=== PATIENT | male | born 1935 | race Caucasian/White ===

== ENCOUNTER 2019-08-25 01:49 | Inpatient (IN) | payer BC, MEDICARE ==
[2019-08-25] MEDS ORDERED: SODIUM CHLORIDE 0.9% 1,000 ML IV STA (02:03)
[2019-08-25] MEDS ORDERED: RX INFO: IV CONTRAST WAS GIVEN 1 EACH MISC MISCELLANE PRN (02:03)
[2019-08-25 02:13] LABS: Basophils # (A) 0.1 k/uL (0-0.2); Basophils % (A) 0 %; Eosinophils # (A) 0.1 k/uL (0-0.7); Eosinophils % (A) 1 %; HCT 39.5 % (39.0-53.0); HGB 13.3 gm/dL (13.0-17.5); Lymphocytes # (A) 0.7 k/uL (1.0-4.8); Lymphocytes % (A) 5 %; MCHC 33.8 g/dL (31.0-37.0); MCV 94.8 fL (80.0-100.0); Mean Platelet Volume 6.4; Monocytes # (A) 0.8 k/uL (0-1.0); Monocytes % (A) 6 %; Neutrophils # (A) 11.8 k/uL (1.3-7.7); Neutrophils % (A) 87 %; Platelet Count 257 k/uL (150-450); RBC 4.17 m/uL (4.30-5.90); RDW 12.7 % (11.5-15.5); WBC 13.6 k/uL (3.8-10.6)
[2019-08-25 02:19] LABS: Partial Thromboplastin Time 23.7 sec (22.0-30.0); Prothrombin Time 10.3 sec (9.0-12.0)
[2019-08-25 02:20] LABS: Albumin 3.8 g/dL (3.5-5.0); Potassium 3.9 mmol/L (3.5-5.1); Total Bilirubin 0.9 mg/dL (0.2-1.3)
--- NOTE | 2019-08-25 02:30 | ED ---
SOB HPI - General Chief Complaint: Shortness of Breath Stated Complaint: WENCESLAO Time Seen by Provider: 08/25/19 02:03 Source: patient, EMS Mode of arrival: EMS Limitations: no limitations - History of Present Illness Initial Comments: Boby is a pleasant 84-year-old gentleman who presents the emergency department today via EMS for evaluation of productive cough and hemoptysis. Patient reports she's had a cough for a few days duration, he's feeling somewhat short of breath and having pleuritic chest pain more prominent on the right. Pain is worse with cough or deep inspiration. Patient reports that this evening he developed some bright red blood in his sputum which became concerning and prompted him to call EMS or transferred to hospital. Patient is not on any anticoagulant or antiplatelet medications. Has no history of hemoptysis in the past. - Related Data Allergies Allergy/AdvReac Type Severity Reaction Status Date / Time No Known Allergies Allergy Verified 08/25/19 01:54 Review of Systems ROS Statement: Those systems with pertinent positive or pertinent negative responses have been documented in the HPI. ROS Other: All systems not noted in ROS Statement are negative. Past Medical History Past Medical History: Cancer, Chest Pain / Angina, Hypertension, Prostate Disorder Additional Past Medical History / Comment(s): irregular heart beat, patient s tated no high blood pressure but used to be on atenolol and norvasc. Patient no longer taking those medications, no longer taking plavix either. History of Any Multi-Drug Resistant Organisms: None Reported Past Surgical History: Heart Catheterization With Stent, Hernia Repair, Tonsillectomy Additional Past Surgical History / Comment(s): cadriac stents x 2, removed right testicle Past Anesthesia/Blood Transfusion Reactions: No Reported Reaction Date of Last Stent Placement:: 01/13/2014 Past Psychological History: No Psychological Hx Reported Smoking Status: Former smoker Past Alcohol Use History: None Reported Past Drug Use History: None Reported - Past Family History Father Family Medical History: Diabetes Mellitus, Dialysis, Hypertension, Renal Disease General Exam - General Exam Comments Initial Comments: Physical Exam GENERAL: Patient is well-developed and well-nourished. Ill appearing HENT: Normocephalic, Atraumatic. EYES: PERRL, EOMI PULMONARY: Tachypnea, shallow respirations, crackles on the right CARDIOVASCULAR: RRR Warm and well perfused extremities ABDOMEN: Soft and nontender with normal bowel sounds. Soft, reducible umbilical hernia SKIN: Skin is clear with no lesions or rashes and otherwise unremarkable. : Deferred NEUROLOGIC: Patient is alert and oriented x3. Moving all extremities spontaneously MUSCULOSKELETAL: Normal extremities with adequate strength and full range of motion. No lower extremity swelling or edema. No calf tenderness. PSYCHIATRIC: Normal psychiatric evaluation. Limitations: no limitations Course Vital Signs 08/25/19 08/25/19 08/25/19 01:50 02:30 03:30 Temperature 98.5 F Pulse Rate 93 80 90 Respiratory 18 18 18 Rate Blood Pressure 149/92 136/79 143/80 O2 Sat by Pulse 95 96 96 Oximetry 08/25/19 04:32 Temperature 99.5 F Pulse Rate 80 Respiratory 20 Rate Blood Pressure 139/83 O2 Sat by Pulse 97 Oximetry Medical Decision Making - Medical Decision Making Patient was seen and evaluated, history is obtained from the patient, patient appears to have a productive cough with hemoptysis concerning for likely orchitis or pneumonia. His exams concerning for pneumonia. Labs and imaging were obtained Lab studies reveal mild leukocytosis, normal hemoglobin, normal coags, acute kidney injury Computed tomography scan with contrast was ordered to evaluate for pneumonia versus mass is cause for hemoptysis, computed tomography scan resulted with bilateral infiltrate more prominent on the right with the left however it was also noted to have small peripheral pulmonary embolism bilaterally. Given the patient is having hemoptysis or suspicion that he could have a pulmonary infarct. Antibiotics were ordered remainder of the septic workup was initiated Lactic acid was negative, blood Cultures were obtained prior to menstruation of antibiotics Patient care was discussed with Dr. Cross of the [facility] who agrees with plan for admission. Recommends heparinizing patient with no bolus. - Lab Data Result diagrams: 08/25/19 02:00 08/25/19 02:00 Lab Results 08/25/19 08/25/19 08/25/19 Range/Units 02:00 02:00 02:00 WBC 13.6 H (3.8-10.6) k/uL RBC 4.17 L (4.30-5.90) m/uL Hgb 13.3 (13.0-17.5) gm/dL Hct 39.5 (39.0-53.0) % MCV 94.8 (80.0-100.0) fL MCH 32.0 (25.0-35.0) pg MCHC 33.8 (31.0-37.0) g/dL RDW 12.7 (11.5-15.5) % Plt Count 257 (150-450) k/uL Neutrophils % 87 % Lymphocytes % 5 % Monocytes % 6 % Eosinophils % 1 % Basophils % 0 % Neutrophils # 11.8 H (1.3-7.7) k/uL Lymphocytes # 0.7 L (1.0-4.8) k/uL Monocytes # 0.8 (0-1.0) k/uL Eosinophils # 0.1 (0-0.7) k/uL Basophils # 0.1 (0-0.2) k/uL PT (9.0-12.0) sec INR (<1.2) APTT (22.0-30.0) sec Sodium 138 (137-145) mmol/L Potassium 3.9 (3.5-5.1) mmol/L Chloride 109 H (98-107) mmol/L Carbon Dioxide 19 L (22-30) mmol/L Anion Gap 10 mmol/L BUN 23 H (9-20) mg/dL Creatinine 1.37 H (0.66-1.25) mg/dL Est GFR (CKD-EPI)AfAm 54 (>60 ml/min/1.73 sqM) Est GFR (CKD-EPI)NonAf 47 (>60 ml/min/1.73 sqM) Glucose 125 H (74-99) mg/dL Plasma Lactic Acid Jose (0.7-2.0) mmol/L Calcium 10.0 (8.4-10.2) mg/dL Total Bilirubin 0.9 (0.2-1.3) mg/dL AST 22 (17-59) U/L ALT 15 L (21-72) U/L Alkaline Phosphatase 55 (38-126) U/L Troponin I (0.000-0.034) ng/mL NT-Pro-B Natriuret Pep 321 pg/mL Total Protein 7.0 (6.3-8.2) g/dL Albumin 3.8 (3.5-5.0) g/dL 08/25/19 08/25/19 08/25/19 Range/Units 02:00 02:00 03:17 WBC (3.8-10.6) k/uL RBC (4.30-5.90) m/uL Hgb (13.0-17.5) gm/dL Hct (39.0-53.0) % MCV (80.0-100.0) fL MCH (25.0-35.0) pg MCHC (31.0-37.0) g/dL RDW (11.5-15.5) % Plt Count (150-450) k/uL Neutrophils % % Lymphocytes % % Monocytes % % Eosinophils % % Basophils % % Neutrophils # (1.3-7.7) k/uL Lymphocytes # (1.0-4.8) k/uL Monocytes # (0-1.0) k/uL Eosinophils # (0-0.7) k/uL Basophils # (0-0.2) k/uL PT 10.3 (9.0-12.0) sec INR 1.0 (<1.2) APTT 23.7 (22.0-30.0) sec Sodium (137-145) mmol/L Potassium (3.5-5.1) mmol/L Chloride (98-107) mmol/L Carbon Dioxide (22-30) mmol/L Anion Gap mmol/L BUN (9-20) mg/dL Creatinine (0.66-1.25) mg/dL Est GFR (CKD-EPI)AfAm (>60 ml/min/1.73 sqM) Est GFR (CKD-EPI)NonAf (>60 ml/min/1.73 sqM) Glucose (74-99) mg/dL Plasma Lactic Acid Jose 0.8 (0.7-2.0) mmol/L Calcium (8.4-10.2) mg/dL Total Bilirubin (0.2-1.3) mg/dL AST (17-59) U/L ALT (21-72) U/L Alkaline Phosphatase (38-126) U/L Troponin I <0.012 (0.000-0.034) ng/mL NT-Pro-B Natriuret Pep pg/mL Total Protein (6.3-8.2) g/dL Albumin (3.5-5.0) g/dL - EKG Data -: EKG Interpreted by Wy EKG shows normal: sinus rhythm EKG Comments: EKG was obtained due to pleuritic chest pain, EKG obtained at 2 AM, rate is 81 rhythm is sinus, there is a normal axis, there are normal intervals, LA 184, QRS 90, QTc is 441 there are no acute ST elevations or depressions no evidence of acute ischemia or infarction. Of note there is a lead 1 and a inverted T-wave in lead 3 these are concerning for right heart strain. Disposition Clinical Impression: Pulmonary embolism, CAP (community acquired pneumonia), Hemoptysis, JULIANNA (acute kidney injury) Disposition: ADMITTED IP TO THIS HOSP Condition: Serious
--- NOTE | 2019-08-25 02:55 | CT ---
EXAMINATION TYPE: CT chest w con DATE OF EXAM: 08/25/2019 COMPARISON: None HISTORY: Patient presents with hemoptysis. CT DLP: 425.4 mGycm Automated exposure control for dose reduction was used. CONTRAST: CT scan of the chest is performed with IV Contrast, patient injected with 100mL mL of Isovue 300. FINDINGS: There is some coarse infiltrate and atelectasis at the lung bases bilaterally. Heart appears enlarged . There is no mediastinal adenopathy. Thoracic aorta is atheromatous. There are no hilar masses. Ther e is no aneurysm or dissection. There are calcified granulomata at the pulmonary alphonso. The ascending aorta measures 3.3 cm. There are multiple hepatic cysts. There is fluid level in the gallbladder that could relate to multiple gallstones. There is some spurring in the thoracic spine. I see no bony solo tructive process. IMPRESSION: Mild spondylotic changes. Cardiomegaly. Bilateral lower lobe pulmonary infiltrates and atelectasis. Old granulomatous disease.
[2019-08-25] MEDS ORDERED: AZITHROMYCIN 500 MG in SODIUM CHLORIDE 0.9% 250 ML IVPB STA (03:02)
[2019-08-25] MEDS ORDERED: MORPHINE SULFATE 4 MG/ML SYRINGE IVP STA (03:12)
[2019-08-25] MEDS ORDERED: HEPARIN SODIUM,PORCINE 5,000 UNIT/ML 1 ML VIAL IV PRN (04:10)
[2019-08-25] MEDS ORDERED: NALOXONE 0.4 MG/ML 1 ML VIAL IV PRN (04:14)
[2019-08-25] MEDS ORDERED: HEPARIN SOD,PORK IN 0.45% NACL 25,000 UNIT in 0.45% NACL 1 250ML.BAG IV SCH (04:15)
--- NOTE | 2019-08-25 06:51 | P.HPIM ---
History of Present Illness H&P Date: 08/25/19 Chief Complaint: Hemoptysis 84-year-old male with a remote history of colon cancer Patient comes in today by EMS due to hemoptysis. Patient reports that he's been feeling sick over the past 3 days, described productive cough and some pleuritic chest pain with subjective fevers and chills. He reports that the pain gets worse with deep breathing and coughing and it happens at different sites of his chest is time. Rated it as sharp pain 6 out of 10 in severity. Short left pain resolves immediately. He reports positive sick contact about a week ago when his niece visited him and she had walking pneumonia. He denies any recent hospitalization or any recent use of antibiotics. However today he started having hemoptysis got very concerned he felt his breathing was getting worse. He lives alone he takes care of himself and his son checks on him by calling him daily. Patient called EMS and was brought into the hospital Patient otherwise denies any GI bleeding denies any nausea vomiting denies any abdominal pain denies any focal neuro deficits denies any headache changes in vision or hearing. Patient reported remote history of colon cancer found on colonoscopy but upon follow-up with colonoscopies he was told by his doctors that everything was cleared. Patient doesn't take any medications at home at this time. Patient denies any suicidal ideation patient denies any depression. Patient denies any falling In the ED patient labs showed elevated white count and creatinine. CT of the chest showed pulmonary infiltrates and multiple emboli, EKG showed some T-wave inversion in lead III Review of Systems Pertinent positives as noted in HPI. All other systems were reviewed and are negative Past Medical History Past Medical History: Cancer, Chest Pain / Angina, Hypertension, Prostate Disorder Additional Past Medical History / Comment(s): irregular heart beat, patient stated no high blood pressure but used to be on atenolol and norvasc. Patient no longer taking those medications, no longer taking plavix either. History of Any Multi-Drug Resistant Organisms: None Reported Past Surgical History: Heart Catheterization With Stent, Hernia Repair, Tonsillectomy Additional Past Surgical History / Comment(s): cadriac stents x 2, removed right testicle Past Anesthesia/Blood Transfusion Reactions: No Reported Reaction Date of Last Stent Placement:: 01/13/2014 Past Psychological History: No Psychological Hx Reported Smoking Status: Former smoker Past Alcohol Use History: None Reported Past Drug Use History: None Reported - Past Family History Mother Family Medical History: Cancer Father Family Medical History: Diabetes Mellitus, Dialysis, Hypertension, Renal Disease Medications and Allergies Allergies Allergy/AdvReac Type Severity Reaction Status Date / Time No Known Allergies Allergy Verified 08/25/19 01:54 Physical Exam Vitals: Vital Signs Temp Pulse Resp BP Pulse Ox 08/25/19 04:32 99.5 F 80 20 139/83 97 08/25/19 03:30 90 18 143/80 96 08/25/19 02:30 80 18 136/79 96 08/25/19 01:50 98.5 F 93 18 149/92 95 Intake and Output 08/24/19 08/24/19 08/25/19 14:59 22:59 06:59 Other: Weight 75.7 kg Constitutional: No acute distress, conversant, pleasant Eyes: Anicteric sclerae, moist conjunctiva, no lid-lag Pupils equal round reactive to light ENMT: NC/AT Oropharynx clear, no erythema, exudates Neck: Supple, FROM, no masses, or JVD No carotid bruits No thyromegaly Lungs: Decreased breath sounds at bilateral lung bases mostly on the left. Patient is having some shallow rapid breathing Clear to percussion Normal respiratory effort, no accessory muscle use Cardiovascular: Heart regular in rate and rhythm, No murmurs, gallops, or rubs No peripheral edema Abdominal: Soft Nontender, no guarding, rebound or rigidity Abdomen moving with respiration Normoactive bowel sounds No hepatomegaly, No splenomegaly No palpable mass Umbilical hernia reducible Skin: Normal temperature, tone, texture, turgor No induration No subcutaneous nodules No rash, lesions No ulcers Extremities: No digital cyanosis No clubbing Pedal pulses intact and symmetrical Radial pulses intact and symmetrical No calf tenderness Psychiatric: Alert and oriented to person, place and time Appropriate affect fair judgement Neuro Muscles Strength 5/5 in all 4 extremities Sensation to light touch grossly present throughout Cranial nerves II-XII grossly intact No focal sensory deficits Lymphatics: no palpable cervical or supraclavicular , or inguinal lymph nodes Results CBC & Chem 7: 08/25/19 02:00 08/25/19 02:00 Labs: Abnormal Lab Results - Last 24 Hours (Table) 08/25/19 08/25/19 Range/Units 02:00 02:00 WBC 13.6 H (3.8-10.6) k/uL RBC 4.17 L (4.30-5.90) m/uL Neutrophils # 11.8 H (1.3-7.7) k/uL Lymphocytes # 0.7 L (1.0-4.8) k/uL Chloride 109 H (98-107) mmol/L Carbon Dioxide 19 L (22-30) mmol/L BUN 23 H (9-20) mg/dL Creatinine 1.37 H (0.66-1.25) mg/dL Glucose 125 H (74-99) mg/dL ALT 15 L (21-72) U/L Thrombosis Risk Factor Assmnt - Choose All That Apply Each Factor Represents 1 point: Medical pt on bed rest Each Risk Factor Represents 3 Points: Age 75 years or older, History of DVT/PE Other congenital or acquired thrombophilia - If yes, enter type in comment: No Thrombosis Risk Factor Assessment Total Risk Factor Score: 7 Thrombosis Risk Factor Assessment Level: High Risk Assessment and Plan Assessment: 84-year-old male no significant past medical history Patient presented due to hemoptysis, was found to have bilateral peripheral PE and pneumonia admitted as inpatient with anticipated length of stay more than 2 midnights Plan: Acute pulmonary embolism Community acquired pneumonia Acute kidney injury Computed tomography scan of the chest reviewed Follow-up cultures Continue with azithromycin and Rocephin Symptomatic control Supplemental oxygen as needed Follow-up labs, monitor hemoglobin, PTT Heparin drip for PE CODE STATUS: No code DVT prophylaxis: On heparin drip for PE Discussed with: Patient, ER, RN Anticipated length of stay more than [address]: Home* A total of 60 minutes was spent on the care of this complex patient more than 50% of the time was spent in counseling and care coordination.
[2019-08-25 09:57] VITALS: BMI 23.9
[2019-08-25] MEDS: HYDROcodone/APAP 5-325MG 1 EACH TAB PO PRN ×3 (10:59→20:44)
--- NOTE | 2019-08-25 11:29 | P.PN ---
Progress Note - Text Progress Note Date: 08/25/19 Patient was seen. 84-year-old male presented to the ED for hemoptysis was found to have bilateral PE and pneumonia. Patient states that he was diagnosed with colon cancer about 30 years ago, underwent 3 colonoscopies, "cured with diet and herbal supplements". Patient states that he is not interested in undergoing another colonoscopy and has not followed up since. He continues to complain of chest pain, right-sided, pleuritic only with deep inspiration, 7 out of 10 in severity. He was started on azithromycin and ceftriaxone for community acquired pneumonia along with heparin drip for PE. We will transition patient from heparin drip to Eliquis by mouth today. Continue IV antibiotics. Follow sputum and blood cultures. We will consult pulmonology for further recommendations. He will need better pain control. Will order incentive spirometer. Likely DC in 1-2 days.
[2019-08-25] MEDS: APIXABAN 5 MG TAB PO SCH ×2 (12:40→20:36)
--- NOTE | 2019-08-25 15:00 | ECHOF ---
Referral Reason:CP, SOB MEASUREMENTS -------- HEIGHT: 152.4 cm WEIGHT: 75.3 kg BP: IVSd: 1.3 cm (0.6 - 1.1) LVIDd: 4.2 cm (3.9 - 5.3) LVPWd: 1.0 cm (0.6 - 1.1) IVSs: 1.5 cm LVIDs: 2.9 cm LVPWs: 1.8 cm LA Diam: 4.9 cm (2.7 - 3.8) RVIDd: 4.0 cm (< 3.3) LAESV Index (A-L): 54.95 ml/m Ao Diam: 3.7 cm (2.0 - 3.7) LA Diam: 4.2 cm (2.7 - 3.8) AV Cusp: 1.9 cm (1.5 - 2.6) MV E Javier: 1.07 m/s MV DecT: 170 ms MV A Javier: 0.88 m/s MV E/A Ratio: 1.21 RAP: 5.00 mmHg RVSP: 58.74 mmHg MV EF SLOPE: 67.79 mm/s (70 - 150) MV EXCURSION: 20.82 mm (> 18.000) FINDINGS -------- Sinus rhythm. This was a technically adequate study. The left ventricular size is normal. There is mild concentric left ventricular hypertrophy. Overa ll left ventricular systolic function is low-normal with, an EF between 50 - 55 %. The right ventricle is normal in size. The left atrium is markedly dilated. LA is moderately dilated 34-39 ml/m2 The right atrial size is normal. There is mild aortic valve sclerosis. There is no evidence of aortic regurgitation. Mild mitral annular calcification present. Severe mitral regurgitation is present. Mild prolapse of the posterior mitral valve leaflet. Mild tricuspid regurgitation present. There is moderate pulmonary hypertension. The right ventric ular systolic pressure, as measured by Doppler, is 58.74mmHg. There is no pulmonic regurgitation present. The aortic root size is normal. There is no pericardial effusion. CONCLUSIONS -------- 1. Sinus rhythm. 2. This was a technically adequate study. 3. The left ventricular size is normal. 4. There is mild concentric left ventricular hypertrophy. 5. Overall left ventricular systolic function is low-normal with, an EF between 50 - 55 %. 6. The right ventricle is normal in size. 7. The left atrium is markedly dilated. 8. LA is moderately dilated 34-39 ml/m2 9. The right atrial size is normal. 10. There is mild aortic valve sclerosis. 11. Mild mitral annular calcification present. 12. Severe mitral regurgitation is present. 13. Mild prolapse of the posterior mitral valve leaflet. 14. Mild tricuspid regurgitation present. 15. There is moderate pulmonary hypertension. 16. The right ventricular systolic pressure, as measured by Doppler, is 58.74mmHg. 17. There is no pulmonic regurgitation present. 18. The aortic root size is normal. 19. There is no pericardial effusion. [employer]PER[employer]OR: Yudelka Fischer RDCS
--- NOTE | 2019-08-25 15:34 | P.CNPUL ---
History of Present Illness Consult date: 08/25/19 Requesting physician: Ed Ramires Reason for consult: chest pain Chief complaint: Right upper and lower pleuritic chest pain History of present illness: This is a 84-year-old white male patient of Dr. Newton, with remote history of colon cancer 32 years ago, hypertension, coronary artery disease with previous stenting, previous myocardial infarction, history of atrial fibrillation former smoker, prostate disorder, who came into the hospital on 08/25/2019 with complaints of productive cough, hemoptysis and pleuritic chest pain more prominent on the right, which was exacerbated with cough and deep inspiration. Patient states he started bringing up some bright red blood, which concerned him. Patient is not on any prescription medications, he takes no anticoagulants, patient takes a lot of herbal supplements. Denied any fever or chills. No recent illness. CT chest with contrast showed bilateral lower lobe pulmonary infiltrates, atelectasis, and filling defect in branches of right lower lobe pulmonary artery and small branch of the right upper lobe and left upper lobe pulmonary arteries, consistent with multiple small emboli. Hemodynamic patient has been stable, he is on 2 L of oxygen, with a pulse ox of 96%, is awake and alert, non-tachycardic, patient was started on heparin infusion for anticoagulation, it has been transitioned to oral Eliquis. Echocardiogram is pending. Review of Systems All systems: negative Constitutional: Denies chills, Denies fever Eyes: denies blurred vision, denies pain Ears, nose, mouth and throat: Denies headache, Denies sore throat Cardiovascular: Denies chest pain, Denies shortness of breath Respiratory: Reports hemoptysis, Reports pain, Reports pleurisy, Denies cough Gastrointestinal: Denies abdominal pain, Denies diarrhea, Denies nausea, Denies vomiting Musculoskeletal: Denies myalgias Integumentary: Denies pruritus, Denies rash Neurological: Denies numbness, Denies weakness Psychiatric: Denies anxiety, Denies depression Endocrine: Denies fatigue, Denies weight change Past Medical History Past Medical History: Cancer, Chest Pain / Angina, Hypertension, Prostate Di sorder Additional Past Medical History / Comment(s): irregular heart beat, patient stated no high blood pressure but used to be on atenolol and norvasc. Patient no longer taking those medications, no longer taking plavix either. History of Any Multi-Drug Resistant Organisms: None Reported Past Surgical History: Heart Catheterization With Stent, Hernia Repair, Tonsillectomy Additional Past Surgical History / Comment(s): cadriac stents x 2, removed right testicle Past Anesthesia/Blood Transfusion Reactions: No Reported Reaction Date of Last Stent Placement:: 01/13/2014 Past Psychological History: No Psychological Hx Reported Smoking Status: Former smoker Past Alcohol Use History: None Reported Past Drug Use History: None Reported - Past Family History Mother Family Medical History: Cancer Father Family Medical History: Diabetes Mellitus, Dialysis, Hypertension, Renal Disease Medications and Allergies Home Medications Medication Instructions Recorded Confirmed Type Concentrated Ultra Prostagen 2 tab PO BID 08/25/19 08/25/19 History Curcum-Evail 1 tab PO HS 08/25/19 08/25/19 History Fermented Black Garlic 1 tab PO BID 08/25/19 08/25/19 History Holy Basil Force 2 tab PO BID 08/25/19 08/25/19 History Hydroxyobalamin B-12 1 tab PO DAILY 08/25/19 08/25/19 History Inflavonoid Intensive Care 2 tab PO BID 08/25/19 08/25/19 History Pure Aloe Vera Extract 1 tab PO BID 08/25/19 08/25/19 History Turmeric [place] Extra Strength 1 tab PO BID 08/25/19 08/25/19 History Ubiquinol 400 mg PO BID 08/25/19 08/25/19 History Vitamin C8 527mg 1 cap PO BID 08/25/19 08/25/19 History Vitamin D3 + K 1 tab PO DAILY 08/25/19 08/25/19 History Allergies Allergy/AdvReac Type Severity Reaction Status Date / Time No Known Allergies Allergy Verified 08/25/19 09:47 Physical Exam Vitals: Vital Signs Temp Pulse Pulse Resp BP BP Pulse Ox 08/25/19 12:00 80 16 135/63 93 L 08/25/19 08:00 98.3 F 76 16 146/68 96 08/25/19 06:00 98.2 F 67 24 136/72 97 08/25/19 04:32 99.5 F 80 20 139/83 97 08/25/19 03:30 90 18 143/80 96 08/25/19 02:30 80 18 136/79 96 08/25/19 01:50 98.5 F 93 18 149/92 95 Intake and Output 08/25/19 08/25/19 08/25/19 06:59 14:59 22:59 Intake Total 0 Balance 0 Intake: Oral 0 Other: Weight 75.7 kg 75.7 kg GENERAL EXAM: Alert, very pleasant, 84-year-old white male, resting in bed, currently on room air, comfortable in no apparent distress. HEAD: Normocephalic/atraumatic. EYES: Normal reaction of pupils, equal size. Conjunctiva pink, sclera white. NOSE: Clear with pink turbinates. THROAT: No erythema or exudates. NECK: No masses, no JVD, no thyroid enlargement, no adenopathy. CHEST: No chest wall deformity. Symmetrical expansion. LUNGS: Decreased air entry with no crackles, wheeze, rhonchi or dullness. CVS: Regular rate and rhythm, normal S1 and S2, no gallops, no murmurs, no rubs ABDOMEN: Soft, nontender. No hepatosplenomegaly, normal bowel sounds, no gua rding or rigidity. EXTREMITIES: No clubbing, no edema, no cyanosis, 2+ pulses and upper and lower extremities. MUSCULOSKELETAL: Muscle strength and tone normal. SPINE: No scoliosis or deformity SKIN: No rashes CENTRAL NERVOUS SYSTEM: Alert and oriented -3. No focal deficits, tone is normal in all 4 extremities. PSYCHIATRIC: Alert and oriented -3. Appropriate affect. Intact judgment and insight. Results - Laboratory Findings CBC and BMP: 08/25/19 02:00 08/25/19 02:00 PT/INR, D-dimer PT 10.3 sec (9.0-12.0) 08/25/19 02:00 INR 1.0 (<1.2) 08/25/19 02:00 Abnormal lab findings: Abnormal Labs 08/25/19 08/25/19 02:00 02:00 WBC 13.6 H RBC 4.17 L Neutrophils # 11.8 H Lymphocytes # 0.7 L Chloride 109 H Carbon Dioxide 19 L BUN 23 H Creatinine 1.37 H Glucose 125 H ALT 15 L - Diagnostic Findings CT scan - chest: report reviewed, image reviewed Additional studies: EKG reviewed Assessment and Plan Plan: Assessment: #1. Pleuritic chest pain and hemoptysis, likely related to acute pulmonary emboli, CT chest with contrast showed filling defects in branches of right lower lobe right upper lobe and left upper lobe pulmonary arteries consistent with multiple small emboli #2. Bilateral lower lobe pulmonary infiltrates and atelectasis, could be related to pulmonary infarctions, likelihood of underlying pneumonia is less likely, but patient will be covered with empiric antibiotics #3. Previous history of paroxysmal atrial fibrillation, not on any anticoagulation on the regular basis, currently in sinus rhythm #4. Severe mitral regurgitation, and mild prolapse of the posterior mitral valve leaflet #5. Moderate pulmonary hypertension with PA systolic of 58.7 mmHg #6. Hypertension #7. Coronary artery disease, with previous stenting #8. History of smoking, currently in remission #9. Prostate disorder Plan: Patient has already been transitioned to Eliquis, hemodynamically he remains stable, oxygenation is stable, no fever or chills, CT chest has been reviewed with Dr. Falcon, patient has been seen and evaluated by Dr. Falcon, continue with empiric antibiotic coverage, although the possibility of underlying pneumonia is less likely, pulmonary infiltrates in bilateral lower lobes could be related to pulmonary infarctions. Echocardiogram results have been noted, she may eventually require evaluation with the transesophageal echocardiogram for his severe mitral regurgitation and prolapse of posterior mitral valve the foot. For now continue with oral Eliquis, continue with antibiotics, we will continue to follow. I performed a history & physical examination of the patient and discussed their management with my nurse practitioner, Ana Mendieta. I reviewed the nurse practitioner's note and agree with the documented findings and plan of care. Lung sounds are positive for diminished breath sounds. The findings and the impression was discussed with the patient. I attest to the documentation by the nurse practitioner. Time with Patient: Greater than 30
[2019-08-26] MEDS: HYDROcodone/APAP 5-325MG 1 EACH TAB PO PRN ×2 (04:24→20:46)
[2019-08-26 06:17] LABS: Basophils # (A) 0.1 k/uL (0-0.2); Basophils % (A) 1 %; Eosinophils # (A) 0.1 k/uL (0-0.7); Eosinophils % (A) 1 %; HCT 37.2 % (39.0-53.0); HGB 12.4 gm/dL (13.0-17.5); Lymphocytes # (A) 0.9 k/uL (1.0-4.8); Lymphocytes % (A) 8 %; MCH 32.4 pg (25.0-35.0); MCHC 33.4 g/dL (31.0-37.0); MCV 96.8 fL (80.0-100.0); Mean Platelet Volume 6.8; Monocytes # (A) 0.8 k/uL (0-1.0); Monocytes % (A) 8 %; Neutrophils # (A) 8.2 k/uL (1.3-7.7); Neutrophils % (A) 80 %; Platelet Count 247 k/uL (150-450); RBC 3.85 m/uL (4.30-5.90); RDW 12.5 % (11.5-15.5); WBC 10.2 k/uL (3.8-10.6)
[2019-08-26] MEDS: APIXABAN 5 MG TAB PO SCH ×2 (08:41→20:46)
[2019-08-26] MEDS: AZITHROMYCIN 500 MG TAB PO SCH (08:41)
[2019-08-26 09:35] LABS: Calcium 9.4 mg/dL (8.4-10.2); Potassium 4.1 mmol/L (3.5-5.1)
--- NOTE | 2019-08-26 10:37 | P.PN ---
Subjective Progress Note Date: 08/26/19 Principal diagnosis: PE Patient was seen and examined. No acute events overnight. Patient continues to report pleuritic chest pain, 5-7 out of 10 in severity especially with deep inspiration. He is able to do about 1000 mL on incentive spirometer. Echocardiogram was performed yesterday, found to have severe mitral regurgitation. 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 He denies any palpitations. No nausea or vomiting. No fever or chills. Objective - Vital Signs Vital signs: Vital Signs Temp 98.5 F 08/26/19 00:00 Pulse 77 08/26/19 08:00 Resp 16 08/26/19 08:00 BP 148/66 08/26/19 08:00 Pulse Ox 96 08/26/19 08:00 Intake & Output 08/25/19 08/26/19 08/26/19 18:59 06:59 18:59 Intake Total 840 240 Output Total 600 Balance 840 -600 240 Weight 75.7 kg 76.3 kg Intake: Oral 840 240 Output: Urine 600 Other: Voiding Method Urinal # Voids 1 - Exam General: [non toxic], [no distress], [appears at stated age] Derm: [warm], [dry] Head: [atraumatic], [normocephalic], [symmetric] Eyes: [EOMI], [no lid lag], [anicteric sclera] Mouth: [no lip lesion], [mucus membranes moist] Cardiovascular: [S1S2 reg], [no murmur], [positive DP pulse bilateral], Lungs: [CTA bilateral], [no rhonchi, no rales] , [no accessory muscle use] Abdominal: [soft], [ nontender to palpation], [no guarding], [no appreciable organomegaly] Ext: [no gross muscle atrophy], [no edema], [no contractures] Neuro: [no focal neuro deficits] Psych: [Alert], [oriented], [appropriate affect] - Labs CBC & Chem 7: 08/26/19 05:47 08/26/19 05:47 Labs: Abnormal Lab Results - Last 24 Hours (Table) 08/26/19 08/26/19 Range/Units 05:47 05:47 RBC 3.85 L (4.30-5.90) m/uL Hgb 12.4 L (13.0-17.5) gm/dL Hct 37.2 L (39.0-53.0) % Neutrophils # 8.2 H (1.3-7.7) k/uL Lymphocytes # 0.9 L (1.0-4.8) k/uL Chloride 110 H (98-107) mmol/L Carbon Dioxide 21 L (22-30) mmol/L BUN 21 H (9-20) mg/dL Creatinine 1.27 H (0.66-1.25) mg/dL Microbiology - Last 24 Hours (Table) 08/25/19 03:17 Blood Culture - Preliminary Blood No Growth after 24 hours Assessment and Plan Assessment: Assessment and plan Acute pulmonary embolus Severe mitral regurgitation Community acquired pneumonia Acute kidney injury History of colon cancer Anemia As seen on CTA chest. Patient reports a remote history of colon cancer that was cured with diet and supplements. Plans: Transition from heparin drip to E liquis. Continue incentive spirometer. Pulmonology is following. Supplemental O2 to maintain O2 saturation greater than 92%. As seen on echocardiogram. Patient reports no changes in exercise tolerance. Plans: Follow cardiology consultation. As seen on CTA chest. Blood cultures negative at 24 hours. Plans: Continue azithromycin and ceftriaxone. Follow blood cultures. Follow sputum cultures. Creatinine 1.37-1.27. Likely due to dehydration. Prerenal. Plans: Continue IV hydration. Avoid nephrotoxins. Repeat BMP in the morning. Plans: Advised that patient needs repeat colonoscopy since it is been many years. Patient was initially refusing, but understands the risk of not follow ing up. Advised to follow-up with PCP for colonoscopy. Hemoglobin 12.4. Normocytic. Likely due to dilution as also lines are down. Plans: No signs of bleeding. Will continue to monitor. [Encourage incentive spirometer along with supplemental oxygen and pain control for PE. Cardiology consulted for severe mitral regurgitation. Patient is pending clinical improvement. Likely DC tomorrow.]
--- NOTE | 2019-08-26 13:37 | P.PN ---
Subjective Progress Note Date: 08/26/19 Principal diagnosis: Right upper and lower pleuritic chest pain, acute pulmonary embolism This is a 84-year-old white male patient of Dr. Newton, with remote history of colon cancer 32 years ago, hypertension, coronary artery disease with previous stenting, previous myocardial infarction, history of atrial fibrillation former smoker, prostate disorder, who came into the hospital on 08/25/2019 with complaints of productive cough, hemoptysis and pleuritic chest pain more promin ent on the right, which was exacerbated with cough and deep inspiration. Patient states he started bringing up some bright red blood, which concerned him. Patient is not on any prescription medications, he takes no anticoagulants, patient takes a lot of herbal supplements. Denied any fever or chills. No recent illness. CT chest with contrast showed bilateral lower lobe pulmonary infiltrates, atelectasis, and filling defect in branches of right lower lobe pulmonary artery and small branch of the right upper lobe and left upper lobe pulmonary arteries, consistent with multiple small emboli. Hemodynamic patient has been stable, he is on 2 L of oxygen, with a pulse ox of 96%, is awake and alert, non-tachycardic, patient was started on heparin infusion for anticoagulation, it has been transitioned to oral Eliquis. Echocardiogram is pending. On 08/26/2019 patient seen in follow-up on selective care unit, he is awake and alert, currently on room air, his pulse ox is 95%, hemodynamically stable, no fever or chills, he is right-sided pleuritic chest pain is improving, although she still has some discomfort with deep breathing and coughing, occasional episodes of blood-tinged mucus, and the blood appears to be old. Blood culture showed no growth, patient has had no fever or chills. He continues on empiric antibiotics, he has been switched over to oral Eliquis. Echocardiogram results have been reviewed showing EF of 50-55%, severe mitral regurgitation, and mild prolapse of the posterior mitral valve leaflet. There was a moderate pulmonary hypertension with right-sided pressures to 58.7 mmHg. Objective - Vital Signs Vital signs: Vital Signs Temp 98.5 F 08/26/19 00:00 Pulse 116 H 08/26/19 12:00 Resp 16 08/26/19 12:00 BP 136/64 08/26/19 12:00 Pulse Ox 95 08/26/19 12:00 Intake & Output 08/25/19 08/26/19 08/26/19 18:59 06:59 18:59 Intake Total 840 240 Output Total 600 Balance 840 -600 240 Weight 75.7 kg 76.3 kg Intake: Oral 840 240 Output: Urine 600 Other: Voiding Method Urinal Urinal # Voids 1 - Exam GENERAL EXAM: Alert, very pleasant, 84-year-old white male, resting in bed, currently on room air, comfortable in no apparent distress. HEAD: Normocephalic/atraumatic. EYES: Normal reaction of pupils, equal size. Conjunctiva pink, sclera white. NOSE: Clear with pink turbinates. THROAT: No erythema or exudates. NECK: No masses, no JVD, no thyroid enlargement, no adenopathy. CHEST: No chest wall deformity. Symmetrical expansion. LUNGS: Decreased air entry with no crackles, wheeze, rhonchi or dullness. CVS: Regular rate and rhythm, normal S1 and S2, no gallops, no murmurs, no rubs ABDOMEN: Soft, nontender. No hepatosplenomegaly, normal bowel sounds, no guarding or rigidity. EXTREMITIES: No clubbing, no edema, no cyanosis, 2+ pulses and upper and lower extremities. MUSCULOSKELETAL: Muscle strength and tone normal. SPINE: No scoliosis or deformity SKIN: No rashes CENTRAL NERVOUS SYSTEM: Alert and oriented -3. No focal deficits, tone is normal in all 4 extremities. PSYCHIATRIC: Alert and oriented -3. Appropriate affect. Intact judgment and insight. - Labs CBC & Chem 7: 08/26/19 05:47 08/26/19 05:47 Labs: Abnormal Lab Results - Last 24 Hours (Table) 08/26/19 08/26/19 Range/Units 05:47 05:47 RBC 3.85 L (4.30-5.90) m/uL Hgb 12.4 L (13.0-17.5) gm/dL Hct 37.2 L (39.0-53.0) % Neutrophils # 8.2 H (1.3-7.7) k/uL Lymphocytes # 0.9 L (1.0-4.8) k/uL Chloride 110 H (98-107) mmol/L Carbon Dioxide 21 L (22-30) mmol/L BUN 21 H (9-20) mg/dL Creatinine 1.27 H (0.66-1.25) mg/dL Microbiology - Last 24 Hours (Table) 08/25/19 03:17 Blood Culture - Preliminary Blood No Growth after 24 hours Assessment and Plan Plan: Assessment: #1. Pleuritic chest pain and hemoptysis, likely related to acute pulmonary emboli, CT chest with contrast showed filling defects in branches of right lower lobe right upper lobe and left upper lobe pulmonary arteries consistent with multiple small emboli #2. Bilateral lower lobe pulmonary infiltrates and atelectasis, could be related to pulmonary infarctions, likelihood of underlying pneumonia is less likely, but patient will be covered with empiric antibiotics #3. Previous history of paroxysmal atrial fibrillation, not on any anticoagulation on the regular basis, currently in sinus rhythm #4. Severe mitral regurgitation, and mild prolapse of the posterior mitral valve leaflet #5. Moderate pulmonary hypertension with PA systolic of 58.7 mmHg #6. Hypertension #7. Coronary artery disease, with previous stenting #8. History of smoking, currently in remission #9. Prostate disorder Plan: Continue oral anticoagulation, hemodynamically patient remains stable, still has residual pleuritic chest pain, which is improving. Occasional hemoptysis with old bloody sputum. No fever or chills, continue with empiric antibiotic coverage, send a sputum for culture. Maintain pain control, encourage patient to sit up in the chair, and ambulate. We'll continue to follow I performed a history & physical examination of the patient and discussed their management with my nurse practitioner, Ana Mendieta. I reviewed the nurse practitioner's note and agree with the documented findings and plan of care. Lung sounds are positive for diminished breath sounds. The findings and the impression was discussed with the patient. I attest to the documentation by the nurse practitioner. Time with Patient: Less than 30
--- NOTE | 2019-08-26 14:05 | P.CRDCN ---
History of Present Illness Consult date: 08/26/19 Requesting physician: Ruddy Cordova Reason for Consult (text): Mitral regurgitation Chief complaint: Shortness of breath History of present illness: This is a pleasant 84-year-old gentleman with history of hypertension, hyperlipidemia, coronary artery disease with 2 stents placed in the past, history of prior myocardial infarction, prior history of smoking, history of prostate disorder, patient also had a diagnosis of colon cancer approximately 30 years ago. He presented to the hospital on this occasion with symptoms of shortness of breath, pleuritic type chest pain, more on the right side of the chest, associated hemoptysis. He takes no prescription medications and actually takes a lot of herbal supplements, even at the time of his colon cancer he states that he treated it with herbal supplementation. A CT of the chest with contrast showed bilateral lower lobe pulmonary infiltrates, atelectasis, and filling defects in the branches of the right lower lobe pulmonary artery and small branch of the right upper lobe and left upper lobe pulmonary arteries consistent with multiple small pulmonary emboli. Hemodynamically the patient is stable, blood pressure 136/60 with a heart rate of 110, 95% on room air. EKG shows a normal sinus rhythm S1Q3T3 pattern consistent with pulmonary embolism. Echocardiogram with Doppler study was performed which revealed an ejection fraction of 50-55%, severe mitral regurgitation noted. Severe mitral regurgitation. Laboratory data, white blood cell count 13.6 on admission, 10.2 this morning, hemoglobin 12.4, platelet count 247. Sodium 139, potassium 4.1 BUN 21, creatinine 1.2. Troponin 0.012. At the time of my examination, patient had just been up to the bathroom, he does appear to be short of breath with speaking. Past Medical History Past Medical History: Cancer, Chest Pain / Angina, Hypertension, Prostate Disorder Additional Past Medical History / Comment(s): irregular heart beat, patient stated no high blood pressure but used to be on atenolol and norvasc. Patient no longer taking those medications, no longer taking plavix either. History of Any Multi-Drug Resistant Organisms: None Reported Past Surgical History: Heart Catheterization With Stent, Hernia Repair, Tonsillectomy Additional Past Surgical History / Comment(s): cadriac stents x 2, removed right testicle Past Anesthesia/Blood Transfusion Reactions: No Reported Reaction Date of Last Stent Placement:: 01/13/2014 Past Psychological History: No Psychological Hx Reported Smoking Status: Former smoker Past Alcohol Use History: None Reported Past Drug Use History: None Reported - Past Family History Mother Family Medical History: Cancer Father Family Medical History: Diabetes Mellitus, Dialysis, Hypertension, Renal Disease Medications and Allergies Home Medications Medication Instructions Recorded Confirmed Type Concentrated Ultra Prostagen 2 tab PO BID 08/25/19 08/25/19 History Curcum-Evail 1 tab PO HS 08/25/19 08/25/19 History Fermented Black Garlic 1 tab PO BID 08/25/19 08/25/19 History Holy Basil Force 2 tab PO BID 08/25/19 08/25/19 History Hydroxyobalamin B-12 1 tab PO DAILY 08/25/19 08/25/19 History Inflavonoid Intensive Care 2 tab PO BID 08/25/19 08/25/19 History Pure Aloe Vera Extract 1 tab PO BID 08/25/19 08/25/19 History Turmeric Galisteo Extra Strength 1 tab PO BID 08/25/19 08/25/19 History Ubiquinol 400 mg PO BID 08/25/19 08/25/19 History Vitamin C8 527mg 1 cap PO BID 08/25/19 08/25/19 History Vitamin D3 + K 1 tab PO DAILY 08/25/19 08/25/19 History Apixaban [Eliquis Starter Pack 0 mg PO DIRECTED 30 Days #1 pack 08/26/19 Rx (for VTE)] Allergies Allergy/AdvReac Type Severity Reaction Status Date / Time No Known Allergies Allergy Verified 08/25/19 09:47 Physical Exam Vitals: Vital Signs Temp Pulse Resp BP Pulse Ox 08/26/19 12:00 116 H 16 136/64 95 08/26/19 11:55 16 08/26/19 08:00 77 16 148/66 96 08/26/19 04:00 76 20 08/26/19 00:00 98.5 F 69 20 121/72 96 08/25/19 20:00 99.4 F 69 22 129/61 97 08/25/19 16:00 97.7 F 111 H 16 121/77 99 Intake and Output 08/25/19 08/26/19 08/26/19 22:59 06:59 14:59 Intake Total 240 240 Output Total 300 300 Balance -60 -300 240 Intake: Oral 240 240 Output: Urine 300 300 Other: Voiding Method Urinal Urinal Urinal # Voids 1 1 Weight 76.3 kg GENERAL EXAM: Alert, very pleasant, 84-year-old white male, resting in bed, currently on room air, comfortable in no apparent distress. HEAD: Normocephalic/atraumatic. EYES: Normal reaction of pupils, equal size. Conjunctiva pink, sclera white. NOSE: Clear with pink turbinates. THROAT: No erythema or exudates. NECK: No masses, no JVD, no thyroid enlargement, no adenopathy. CHEST: No chest wall deformity. Symmetrical expansion. LUNGS: Decreased air entry with no crackles, wheeze, rhonchi or dullness. CVS: Regular rate and rhythm, normal S1 and S2, systolic murmur is heard ABDOMEN: Soft, nontender. No hepatosplenomegaly, normal bowel sounds, no guarding or rigidity. EXTREMITIES: No clubbing, no edema, no cyanosis, 2+ pulses and upper and lower extremities. MUSCULOSKELETAL: Muscle strength and tone normal. SPINE: No scoliosis or deformity SKIN: No rashes CENTRAL NERVOUS SYSTEM: Alert and oriented -3. No focal deficits, tone is normal in all 4 extremities. PSYCHIATRIC: Alert and oriented -3. Appropriate affect. Intact judgment and insight. Results 08/26/19 05:47 08/26/19 05:47 CBC 08/26/19 Range/Units 05:47 WBC 10.2 (3.8-10.6) k/uL RBC 3.85 L (4.30-5.90) m/uL Hgb 12.4 L (13.0-17.5) gm/dL Hct 37.2 L (39.0-53.0) % Plt Count 247 (150-450) k/uL Comprehensive Metabolic Panel 08/26/19 Range/Units 05:47 Sodium 139 (137-145) mmol/L Potassium 4.1 (3.5-5.1) mmol/L Chloride 110 H (98-107) mmol/L Carbon Dioxide 21 L (22-30) mmol/L BUN 21 H (9-20) mg/dL Creatinine 1.27 H (0.66-1.25) mg/dL Glucose 93 (74-99) mg/dL Calcium 9.4 (8.4-10.2) mg/dL Current Medications Generic Name Dose Route Start Last Admin Trade Name Freq PRN Reason Stop Dose Admin Hydrocodone Bitart/Acetaminophen 1 each 08/25/19 10:49 08/26/19 04:24 [place] 5-325 PO 1 each Q4HR PRN Administration Pain Apixaban 10 mg 08/25/19 11:45 08/26/19 08:41 Eliquis PO 08/31/19 11:31 10 mg BID ESDRAS Administration Azithromycin 500 mg 08/26/19 09:00 08/26/19 08:41 Zithromax PO 500 mg DAILY ESDRAS Administration Ceftriaxone Sodium 1 gm/ 50 mls @ 100 mls/hr 08/26/19 03:00 08/26/19 03:57 Sodium Chloride IVPB 100 mls/hr Q24H ESDRAS Administration Miscellaneous Information 1 each 08/25/19 02:03 08/25/19 02:40 Rx Info: Iv Contrast Was Given MISCELLANE 08/27/19 02:03 1 each DAILY PRN Administration Per Protocol Naloxone HCl 0.2 mg 08/25/19 04:14 Narcan IV Q2M PRN Opioid Reversal Intake and Output 08/25/19 08/26/19 08/26/19 22:59 06:59 14:59 Intake Total 240 240 Output Total 300 300 Balance -60 -300 240 Intake: Oral 240 240 Output: Urine 300 300 Other: Voiding Method Urinal Urinal Urinal # Voids 1 1 Weight 76.3 kg 08/26/19 05:47 08/26/19 05:47 EKG Interpretations (text) EKG shows normal sinus rhythm with S1Q3T3 pattern Assessment and Plan Plan: Assessment and Plan : #1. Pleuritic chest pain and hemoptysis, likely related to acute pulmonary emb ben, CT chest with contrast showed filling defects in branches of right lower lobe right upper lobe and left upper lobe pulmonary arteries consistent with multiple small emboli #2. Echocardiogram with Doppler study showed normal LV function with severe mitral regurgitation and mild prolapse of the posterior mitral valve leaflet #3. Previous history of paroxysmal atrial fibrillation, not on any anticoagulation on the regular basis, currently in sinus rhythm #4. History of colon cancer #5. Moderate pulmonary hypertension with PA systolic of 58.7 mmHg #6. Hypertension #7. Coronary artery disease, with previous stenting #8. History of smoking, currently in remission #9. Prostate disorder Plan Patient has been initiated on Eliquis for anticoagulation for his pulmonary embolisms. We will order a venous duplex study of the lower extremities to rule out a DVT, it is possible that the patient's pulmonary embolism a be secondary to his history of colon cancer. We will also try and obtain an old echo to see if the patient had any mitral regurgitation in the past. Once he is stable from a pulmonary embolism perspective, as an outpatient the patient will need to have a HARRIS performed. Further recommendations to follow. DNP note has been reviewed, I agree with a documented findings and plan of care. Patient was seen and examined.
--- NOTE | 2019-08-26 15:24 | US ---
EXAMINATION TYPE: US venous doppler duplex LE DATE OF EXAM: 08/26/2019 2:50 PM COMPARISON: NONE CLINICAL HISTORY: r/o dvt. Patient states pulmonary embolism SIDE PERFORMED: Bilateral TECHNIQUE: The lower extremity deep venous system is examined utilizing real time linear array sonog nai with graded compression, doppler sonography and color-flow sonography. VESSELS IMAGED: External Iliac Vein (EIV) Common Femoral Vein Deep Femoral Vein Greater Saphenous Vein * Femoral Vein Popliteal Vein Small Saphenous Vein * Proximal Calf Veins (* superficial vessels) Grayscale, color doppler, spectral doppler imaging performed of the deep veins of the lower extremiti es. There is normal flow, compressibility, vascular waveforms. Right Leg: Negative for DVT Left Leg: Negative for DVT IMPRESSION: No sonographic evidence of deep venous thrombosis within either the bilateral visualized lower extremities.
[2019-08-27] MEDS: HYDROcodone/APAP 5-325MG 1 EACH TAB PO PRN (03:20)
[2019-08-27 05:38] VITALS: RESP 18
[2019-08-27 06:33] LABS: Basophils # (A) 0.1 k/uL (0-0.2); Basophils % (A) 1 %; Eosinophils # (A) 0.1 k/uL (0-0.7); Eosinophils % (A) 1 %; HCT 34.8 % (39.0-53.0); HGB 11.8 gm/dL (13.0-17.5); Lymphocytes # (A) 0.9 k/uL (1.0-4.8); Lymphocytes % (A) 9 %; MCH 32.5 pg (25.0-35.0); MCHC 33.9 g/dL (31.0-37.0); MCV 95.9 fL (80.0-100.0); Mean Platelet Volume 6.5; Monocytes # (A) 0.6 k/uL (0-1.0); Monocytes % (A) 6 %; Neutrophils # (A) 8.3 k/uL (1.3-7.7); Neutrophils % (A) 82 %; Platelet Count 263 k/uL (150-450); RBC 3.63 m/uL (4.30-5.90); RDW 12.6 % (11.5-15.5); WBC 10.1 k/uL (3.8-10.6)
[2019-08-27] MEDS: AZITHROMYCIN 500 MG TAB PO SCH (08:38)
[2019-08-27] MEDS: APIXABAN 5 MG TAB PO SCH (08:38)
--- NOTE | 2019-08-27 10:16 | XR ---
EXAMINATION TYPE: XR chest 2V DATE OF EXAM: 08/27/2019 COMPARISON: 05/03/2016 TECHNIQUE: PA and lateral views submitted. HISTORY: Cough, pneumonia FINDINGS: There is a small bilateral effusions greater on the right with right lower lobe consolidation. Heart size at the upper limits of normal. Atherosclerotic change aorta. Biapical pleural thickening. Diffus e osteopenia and arthropathy of the shoulders. IMPRESSION: 1. Bilateral lower lobe infiltrate with small bilateral pleural effusions.
[2019-08-27 12:24] VITALS: BP 118/65; PULSE 70; TEMP 98.1
--- NOTE | 2019-08-27 12:28 | P.PN ---
Subjective Progress Note Date: 08/27/19 Principal diagnosis: PE Patient was seen and examined. No acute events overnight. Patient continues to report pleuritic chest pain, right-sided that has improved over the last couple of days. Patient states that the pain makes him short of breath. He is able to do about 1500 mL on incentive spirometer. No nausea or vomiting. No fever or chills. Objective - Vital Signs Vital signs: Vital Signs Temp 97.9 F 08/27/19 08:00 Pulse 73 08/27/19 08:00 Resp 18 08/27/19 08:00 BP 129/66 08/27/19 08:00 Pulse Ox 95 08/27/19 08:00 Intake & Output 08/26/19 08/27/19 08/27/19 18:59 06:59 18:59 Intake Total 680 Output Total 2 Balance 678 Weight 74.6 kg Intake: Oral 680 Output: Urine 2 Other: Voiding Method Urinal Urinal - Exam General: [non toxic], [no distress], [appears at stated age] Derm: [warm], [dry] Head: [atraumatic], [normocephalic], [symmetric] Eyes: [EOMI], [no lid lag], [anicteric sclera] Mouth: [no lip lesion], [mucus membranes moist] Cardiovascular: [S1S2 reg], [no murmur], [positive DP pulse bilateral], Lungs: [CTA bilateral], [no rhonchi, no rales] , [no accessory muscle use] Abdominal: [soft], [ nontender to palpation], [no guarding], [no appreciable organomegaly] Ext: [no gross muscle atrophy], [no edema], [no contractures] Neuro: [no focal neuro deficits] Psych: [Alert], [oriented], [appropriate affect] - Labs CBC & Chem 7: 08/27/19 05:55 08/26/19 05:47 Labs: Abnormal Lab Results - Last 24 Hours (Table) 08/27/19 Range/Units 05:55 RBC 3.63 L (4.30-5.90) m/uL Hgb 11.8 L (13.0-17.5) gm/dL Hct 34.8 L (39.0-53.0) % Neutrophils # 8.3 H (1.3-7.7) k/uL Lymphocytes # 0.9 L (1.0-4.8) k/uL Microbiology - Last 24 Hours (Table) 08/25/19 03:17 Blood Culture - Preliminary Blood No Growth after 48 hours Assessment and Plan Assessment: Assessment and plan Acute pulmonary embolus Severe mitral regurgitation Community acquired pneumonia Acute kidney injury History of colon cancer Anemia As seen on CTA chest. Patient reports a remote history of colon cancer that was cured with diet and supplements. Plans: Transition from heparin drip to Eliquis. Continue incentive spirometer. Pulmonology is following. Supplemental O2 to maintain O2 saturation greater than 92%. Will need colonoscopy if agreeable in the outpatient setting to rule out colon cancer, discussed with patient. Venous duplex negative. As seen on echocardiogram. Patient reports no changes in exercise tolerance. Plans: Cardiology recommends outpatient follow-up for HARRIS. As seen on CTA chest. Blood cultures negative at 48 hours. Plans: Continue azithromycin and ceftriaxone. Follow blood cultures. Follow sputum cultures. Creatinine 1.37-1.27. Likely due to dehydration. Prerenal. Plans: Continue IV hydration. Avoid nephrotoxins. Repeat BMP in the morning. Plans: Advised that patient needs repeat colonoscopy since it is been many years. Patient was initially refusing, but understands the risk of not following up. Advised to follow-up with PCP for colonoscopy. Hemoglobin 11.8. Normocytic. Likely due to dilution as also lines are down. Plans: No signs of bleeding. Will continue to monitor. [Encourage incentive spirometer along with supplemental oxygen and pain control for PE. Family requesting PT evaluation and possible rehab for worsening balance at home. PT consult placed. Likely DC in 1-2 days to [facility] rehab, social work on board.] Discussed with son living in [place] at bedside. Discussed the importance of colonoscopy to rule out colon cancer as a cause of PE. Advised that patient should not be taking herbal supplements as this can interact with Eliquis. We'll need to follow-up with balling machine operator for HARRIS and cardiac catheterization. This can be done in [place]. Plans for rehab for the next 2 weeks prior to move on September 20.
--- NOTE | 2019-08-27 13:38 | P.PN ---
Subjective Progress Note Date: 08/27/19 Principal diagnosis: Right upper and lower pleuritic chest pain, acute pulmonary embolism This is a 84-year-old white male patient of Dr. Newton, with remote history of colon cancer 32 years ago, hypertension, coronary artery disease with previous stenting, previous myocardial infarction, history of atrial fibrillation former smoker, prostate disorder, who came into the hospital on 08/25/2019 with complaints of productive cough, hemoptysis and pleuritic chest pain more promin ent on the right, which was exacerbated with cough and deep inspiration. Patient states he started bringing up some bright red blood, which concerned him. Patient is not on any prescription medications, he takes no anticoagulants, patient takes a lot of herbal supplements. Denied any fever or chills. No recent illness. CT chest with contrast showed bilateral lower lobe pulmonary infiltrates, atelectasis, and filling defect in branches of right lower lobe pulmonary artery and small branch of the right upper lobe and left upper lobe pulmonary arteries, consistent with multiple small emboli. Hemodynamic patient has been stable, he is on 2 L of oxygen, with a pulse ox of 96%, is awake and alert, non-tachycardic, patient was started on heparin infusion for anticoagulation, it has been transitioned to oral Eliquis. Echocardiogram is pending. On 08/26/2019 patient seen in follow-up on selective care unit, he is awake and alert, currently on room air, his pulse ox is 95%, hemodynamically stable, no fever or chills, he is right-sided pleuritic chest pain is improving, although she still has some discomfort with deep breathing and coughing, occasional episodes of blood-tinged mucus, and the blood appears to be old. Blood culture showed no growth, patient has had no fever or chills. He continues on empiric antibiotics, he has been switched over to oral Eliquis. Echocardiogram results have been reviewed showing EF of 50-55%, severe mitral regurgitation, and mild prolapse of the posterior mitral valve leaflet. There was a moderate pulmonary hypertension with right-sided pressures to 58.7 mmHg. On 08/27/2017 patient seen in follow-up on selective care unit, he is awake and alert, in no acute distress. He has been up out of bed with assistance, patient has a weak shuffling gait, and for that reason subacute rehab was recommended after discharge. Still has pleuritic chest discomfort on the right, has not worsened, occasional episodes of hemoptysis and patient is bringing up some old blood. No fever or chills, leukocytosis, white blood cell count is 10.1, hemoglobin is 11.8, no BMP was done. he was started on Eliquis, means on empiric antibiotics. Cultures showed no growth. Objective - Vital Signs Vital signs: Vital Signs Temp 98.1 F 08/27/19 12:00 Pulse 70 08/27/19 12:00 Resp 18 08/27/19 12:00 BP 118/65 08/27/19 12:00 Pulse Ox 95 08/27/19 12:00 Intake & Output 08/26/19 08/27/19 08/27/19 18:59 06:59 18:59 Intake Total 680 486 Output Total 2 Balance 678 486 Weight 74.6 kg Intake: Oral 680 486 Output: Urine 2 Other: Voiding Method Urinal Urinal - Exam GENERAL EXAM: Alert, very pleasant, 84-year-old white male, resting in bed, currently on room air, comfortable in no apparent distress. HEAD: Normocephalic/atraumatic. EYES: Normal reaction of pupils, equal size. Conjunctiva pink, sclera white. NOSE: Clear with pink turbinates. THROAT: No erythema or exudates. NECK: No masses, no JVD, no thyroid enlargement, no adenopathy. CHEST: No chest wall deformity. Symmetrical expansion. LUNGS: Decreased air entry with no crackles, wheeze, rhonchi or dullness. CVS: Regular rate and rhythm, normal S1 and S2, no gallops, no murmurs, no rubs ABDOMEN: Soft, nontender. No hepatosplenomegaly, normal bowel sounds, no guarding or rigidity. EXTREMITIES: No clubbing, no edema, no cyanosis, 2+ pulses and upper and lower extremities. MUSCULOSKELETAL: Muscle strength and tone normal. SPINE: No scoliosis or deformity SKIN: No rashes CENTRAL NERVOUS SYSTEM: Alert and oriented -3. No focal deficits, tone is normal in all 4 extremities. PSYCHIATRIC: Alert and oriented -3. Appropriate affect. Intact judgment and insight. - Labs CBC & Chem 7: 08/27/19 05:55 08/26/19 05:47 Labs: Abnormal Lab Results - Last 24 Hours (Table) 08/27/19 Range/Units 05:55 RBC 3.63 L (4.30-5.90) m/uL Hgb 11.8 L (13.0-17.5) gm/dL Hct 34.8 L (39.0-53.0) % Neutrophils # 8.3 H (1.3-7.7) k/uL Lymphocytes # 0.9 L (1.0-4.8) k/uL Microbiology - Last 24 Hours (Table) 08/25/19 03:17 Blood Culture - Preliminary Blood No Growth after 48 hours Assessment and Plan Plan: Assessment: #1. Pleuritic chest pain and hemoptysis, likely related to acute pulmonary emboli, CT chest with contrast showed filling defects in branches of right lower lobe right upper lobe and left upper lobe pulmonary arteries consistent with mul tiple small emboli #2. Bilateral lower lobe pulmonary infiltrates and atelectasis, could be relate d to pulmonary infarctions, likelihood of underlying pneumonia is less likely, but patient will be covered with empiric antibiotics #3. Previous history of paroxysmal atrial fibrillation, not on any anticoagulation on the regular basis, currently in sinus rhythm #4. Severe mitral regurgitation, and mild prolapse of the posterior mitral valve leaflet #5. Moderate pulmonary hypertension with PA systolic of 58.7 mmHg #6. Hypertension #7. Coronary artery disease, with previous stenting #8. History of smoking, currently in remission #9. Prostate disorder Plan: Continue oral anticoagulation, continue antibiotics, face follow-up chest x-ray has been reviewed still showing bilateral lower lobe infiltrates with small bilateral pleural effusions. Clinically patient is stable, still has some pleuritic chest pain on the right, and occasional hemoptysis. No fever or chills, will report calcitonin, and the patient's son is requesting CEA level, which we will send, and we'll add a PSA level to that as well. I performed a history & physical examination of the patient and discussed their management with my nurse practitioner, Ana Mendieta. I reviewed the nurse practitioner's note and agree with the documented findings and plan of care. Lung sounds are positive for diminished breath sounds. The findings and the impression was discussed with the patient. I attest to the documentation by the nurse practitioner. Time with Patient: Less than 30
--- NOTE | 2019-08-27 14:43 | P.PN ---
Subjective Progress Note Date: 08/27/19 This is a pleasant 84-year-old gentleman with history of hypertension, hyperlipidemia, coronary artery disease with 2 stents placed in the past, history of prior myocardial infarction, prior history of smoking, history of prostate disorder, patient also had a diagnosis of colon cancer approximately 30 years ago. He presented to the hospital on this occasion with symptoms of shortness of breath, pleuritic type chest pain, more on the right side of the chest, associated hemoptysis. He takes no prescription medications and actually takes a lot of herbal supplements, even at the time of his colon cancer he states that he treated it with herbal supplementation. A CT of the chest with contrast showed bilateral lower lobe pulmonary infiltrates, atelectasis, and filling defects in the branches of the right lower lobe pulmonary artery and small branch of the right upper lobe and left upper lobe pulmonary arteries consistent with multiple small pulmonary emboli. Hemodynamically the patient is stable, blood pressure 136/60 with a heart rate of 110, 95% on room air. EKG shows a normal sinus rhythm S1Q3T3 pattern consistent with pulmonary embolism. Echocardiogram with Doppler study was performed which revealed an ejection fraction of 50-55%, severe mitral regurgitation noted. Severe mitral regurgitation. Laboratory data, white blood cell count 13.6 on admission, 10.2 this morning, hemoglobin 12.4, platelet count 247. Sodium 139, potassium 4.1 BUN 21, creatinine 1.2. Troponin 0.012. At the time of my examination, patient had just been up to the bathroom, he does appear to be short of breath with speaking. 08/27/2019 Patient was seen and examined this morning, in no acute distress. Appears to be somewhat less short of breath today, still continues to be weak. Has some mild chest discomfort when taking a deep breath. Blood pressure 118/60 with a heart rate is 70, 95% on room air. White blood cell count 10.1, hemoglobin 11.8, platelet count 263. Sodium 139, potassium 4.1, BUN 21, creatinine 1.2. Objective - Vital Signs Vital signs: Vital Signs Temp 98.1 F 08/27/19 12:00 Pulse 70 08/27/19 12:00 Resp 18 08/27/19 12:00 BP 118/65 08/27/19 12:00 Pulse Ox 95 08/27/19 12:00 Intake & Output 08/26/19 08/27/19 08/27/19 18:59 06:59 18:59 Intake Total 680 486 Output Total 2 Balance 678 486 Weight 74.6 kg Intake: Oral 680 486 Output: Urine 2 Other: Voiding Method Urinal Urinal - Exam HEAD: Normocephalic/atraumatic. EYES: Normal reaction of pupils, equal size. Conjunctiva pink, sclera white. NOSE: Clear with pink turbinates. THROAT: No erythema or exudates. NECK: No masses, no JVD, no thyroid enlargement, no adenopathy. CHEST: No chest wall deformity. Symmetrical expansion. LUNGS: Decreased air entry with no crackles, wheeze, rhonchi or dullness. CVS: Regular rate and rhythm, normal S1 and S2, systolic murmur is heard ABDOMEN: Soft, nontender. No hepatosplenomegaly, normal bowel sounds, no guarding or rigidity. EXTREMITIES: No clubbing, no edema, no cyanosis, 2+ pulses and upper and lower extremities. MUSCULOSKELETAL: Muscle strength and tone normal. SPINE: No scoliosis or deformity SKIN: No rashes CENTRAL NERVOUS SYSTEM: Alert and oriented -3. No focal deficits, tone is normal in all 4 extremities. PSYCHIATRIC: Alert and oriented -3. Appropriate affect. Intact judgment and insight. - Labs CBC & Chem 7: 08/27/19 05:55 08/26/19 05:47 Labs: Abnormal Lab Results - Last 24 Hours (Table) 08/27/19 Range/Units 05:55 RBC 3.63 L (4.30-5.90) m/uL Hgb 11.8 L (13.0-17.5) gm/dL Hct 34.8 L (39.0-53.0) % Neutrophils # 8.3 H (1.3-7.7) k/uL Lymphocytes # 0.9 L (1.0-4.8) k/uL Microbiology - Last 24 Hours (Table) 08/25/19 03:17 Blood Culture - Preliminary Blood No Growth after 48 hours Assessment and Plan Plan: Assessment and Plan : #1. Pleuritic chest pain and hemoptysis, likely related to acute pulmonary emboli, CT chest with contrast showed filling defects in branches of right lower lobe right upper lobe and left upper lobe pulmonary arteries consistent with multiple small emboli #2. Echocardiogram with Doppler study showed normal LV function with severe mitral regurgitation and mild prolapse of the posterior mitral valve leaflet #3. Previous history of paroxysmal atrial fibrillation, not on any anticoagulation on the regular basis, currently in sinus rhythm #4. History of colon cancer #5. Moderate pulmonary hypertension with PA systolic of 58.7 mmHg #6. Hypertension #7. Coronary artery disease, with previous stenting #8. History of smoking, currently in remission #9. Prostate disorder Plan Patient has been initiated on Eliquis for anticoagulation for his pulmonary embolisms. Once he is stable from a pulmonary embolism perspective, as an o utpatient the patient will need to have a HARRIS performed. Further recommendations to follow. DNP note has been reviewed, I agree with a documented findings and plan of care. Patient was seen and examined.
--- NOTE | 2019-08-27 16:13 | P.DS ---
Providers Date of admission: 08/25/19 04:14 Expected date of discharge: 08/27/19 Attending physician: Ruddy Cordova MD Consults: 08/25/19 11:12 Consult Physician Routine Consulting Provider: Jasen Blake Consult Reason/Comments: PE, PNA Do you want consulting provider notified?: Yes 08/26/19 10:31 Consult Physician Stat Consulting Provider: Mert Dudley Consult Reason/Comments: SEVERE MITRAL REGURG Do you want consulting provider notified?: Yes Primary care physician: [facility] Course: 84-year-old male presented to the ED for hemoptysis. Patient states that he was diagnosed with colon cancer about 30 years ago, underwent 3 colonoscopies, "cured with diet and herbal supplements". Chest CTA confirmed bilateral PE. Patient was initially started on a heparin drip and transitioned to Eliquis. He was given incentive spirometer and pulmonology was consulted. Venous duplex was performed for PE of the bilateral lower extremities and was negative. Chest CT also showed possible bilateral pneumonia for which he was started on ceftriaxone and azithromycin. Blood cultures are negative at 48 hours. Antibiotics were the escalated to Levaquin for a total of 7 days at the time of discharge. With regard to his history of colon cancer, patient was advised that he would need a colonoscopy since it been greater than 30 years according to him when he was cured with herbal supplements and dietary modifications. CEA, PSA was pending at the time of discharge. Echocardiogram was performed which showed severe mitral regurgitation. Cardiology was consulted and recommended outpatient follow-up for possible cardiac catheterization and HARRIS. Assessment and plan Acute pulmonary embolus Severe mitral regurgitation Community acquired pneumonia Acute kidney injury History of colon cancer Anemia As seen on CTA chest. Patient reports a remote history of colon cancer that was cured with diet and supplements. Plans: Transition from heparin drip to Eliquis. Continue incentive spirometer. Pulmonology is following. Supplemental O2 to maintain O2 saturation greater than 92%. Will need colonoscopy if agreeable in the outpatient setting to rule out colon cancer, discussed with patient. Venous duplex negative. As seen on echocardiogram. Patient reports no changes in exercise tolerance. Plans: Cardiology recommends outpatient follow-up for HARRIS. As seen on CTA chest. Blood cultures negative at 48 hours. Plans: Continue azithromycin and ceftriaxone. Follow blood cultures. Follow sputum cultures. Creatinine 1.37-1.27. Likely due to dehydration. Prerenal. Plans: Continue IV hydration. Avoid nephrotoxins. Repeat BMP in the morning. Plans: Advised that patient needs repeat colonoscopy since it is been many years. Patient was initially refusing, but understands the risk of not following up. Advised to follow-up with PCP for colonoscopy. Hemoglobin 11.8. Normocytic. Likely due to dilution as also lines are down. Plans: No signs of bleeding. Will continue to monitor. [Encourage incentive spirometer along with supplemental oxygen and pain control for PE. Family requesting PT evaluation and possible rehab for worsening balance at home. PT consult placed. Likely DC in 1-2 days to [facility] rehab, social work on board.] Discussed with son living in [place] at bedside. Discussed the importance of colonoscopy to rule out colon cancer as a cause of PE. Advised that patient should not be taking herbal supplements as this can interact with Eliquis. We'll need to follow-up with physician primary care sports medicine for HARRIS and cardiac catheterization. This can be done in [place]. Plans for rehab for the next 2 weeks prior to move on September 20. Pertinent Studies: Chest CT, echocardiogram, venous duplex, chest x-ray Patient Condition at Discharge: Stable Plan - Discharge Summary Discharge Rx Participant: No New Discharge Prescriptions: New Apixaban [Eliquis] 10 mg PO BID tab HYDROcodone/APAP 5-325MG [Arjay 5-325] 1 each PO Q4HR PRN #18 tab PRN Reason: Pain Discontinued Vitamin D3 + K 1 tab PO DAILY Fermented Black Garlic 1 tab PO BID Concentrated Ultra Prostagen 2 tab PO BID Ubiquinol 400 mg PO BID Inflavonoid Intensive Care 2 tab PO BID Holy Basil Force 2 tab PO BID Vitamin C8 527mg 1 cap PO BID Pure Aloe Vera Extract 1 tab PO BID Curcum-Evail 1 tab PO HS Turmeric Corrigan Extra Strength 1 tab PO BID Hydroxyobalamin B-12 1 tab PO DAILY Discharge Medication List Apixaban [Eliquis] 10 mg PO BID tab 08/27/19 [Rx] HYDROcodone/APAP 5-325MG [Arjay 5-325] 1 each PO Q4HR PRN #18 tab 08/27/19 [Rx] Follow up Appointment(s)/Referral(s): Pedro Newton, [Primary Care Provider] - 1-2 days Radha Mcghee MD [STAFF PHYSICIAN] - 1 Week Brandon Espinoza MD [STAFF PHYSICIAN] - 1 Week Activity/Diet/Wound Care/Special Instructions: Pts copay for Eliquis is $45/30 day supply. Pt has a free starter pack filled in [facility] pharmacy [facility] Take Eliquis 10 mg by mouth twice a day for the next 5 days followed by 5 mg by mouth twice a day indefinitely until follow-up with PCP. Follow-up with PCP within 3 days of discharge. Follow-up with cardiology within 1 week of discharge. Please obtain referral for colonoscopy with your PCP.
== END 2019-08-27 17:10 | DRG 175 ==
LOC: EC 01:49 → 3SCARD 04:14
PROVIDERS: ADMIT Internal Medicine; ATTEND Internal Medicine
DX: I26.99 Other pulmonary embolism without acute cor pulmonale (principal); J18.9 Pneumonia, unspecified organism; R04.2 Hemoptysis; N17.9 Acute kidney failure, unspecified; J98.11 Atelectasis; J90 Pleural effusion, not elsewhere classified; I10 Essential (primary) hypertension; Z60.2 Problems related to living alone; I34.0 Nonrheumatic mitral (valve) insufficiency; I27.20 Pulmonary hypertension, unspecified; I25.10 Atherosclerotic heart disease of native coronary artery without angina pectoris; E86.0 Dehydration; Z66 Do not resuscitate; I34.1 Nonrheumatic mitral (valve) prolapse; D64.9 Anemia, unspecified; I48.91 Unspecified atrial fibrillation; E78.5 Hyperlipidemia, unspecified; Z95.5 Presence of coronary angioplasty implant and graft; Z98.890 Other specified postprocedural states; Z87.891 Personal history of nicotine dependence; Z90.89 Acquired absence of other organs; Z90.79 Acquired absence of other genital organ(s); Z83.3 Family history of diabetes mellitus; Z82.49 Family history of ischemic heart disease and other diseases of the circulatory system; Z84.1 Family history of disorders of kidney and ureter; Z85.038 Personal history of other malignant neoplasm of large intestine; Z80.9 Family history of malignant neoplasm, unspecified; Z79.899 Other long term (current) drug therapy; I25.2 Old myocardial infarction; Z86.711 Personal history of pulmonary embolism; Z86.718 Personal history of other venous thrombosis and embolism
CPT/HCPCS: 36415; 71046; 71260; 80048; 80053; 82378; 83605; 83880; 84145; 84153; 84154; 84484; 85025; 85610; 85730; 87040; 93005; 93306; 93970; 96361; 96365; 96367; 96375; 99285